=== PATIENT | female | born 1980 | race Caucasian/White ===

== ENCOUNTER 2017-03-06 12:51 | Emergency (ER) | payer OTHER ==
[2017-03-06 13:32] VITALS: BP 93/61
--- NOTE | 2017-03-06 14:07 | UC ---
FLU HPI - HPI Summary HPI Summary: PT HAS BEEN COUGHING FOR OVER A MONTH BUT THIS MORNING STARTED WITH FEVER, CONGESTION, PEREZ, CHILLS AND MYALGIAS. NO FLU SHOT THIS SEASON. LAST DOSE ADVIL 1.5 HRS AGO AND TEMP STILL 101.8. - History of Current Complaint Chief Complaint: UCGeneralIllness Stated Complaint: CONGESTION Time Seen by Provider: 03/06/17 13:53 Hx Obtained From: Patient Hx Last Menstrual Period: 02/15/17 Onset/Duration: Gradual Onset, Lasting Hours, Still Present Severity Currently: Moderate Severity Initially: Moderate Pain Intensity: 7 Pain Scale Used: 0-10 Numeric Associated Signs & Symptoms: Positive: Fever, Myalgia, Cough, Sore Throat, Nasal Congestion, Headache - Allergy/Home Medications Allergies/Adverse Reactions: Allergies Allergy/AdvReac Type Severity Reaction Status Date / Time Gluten Meal Allergy GI Upset Verified 03/06/17 13:32 Home Medications: Home Medications Ibuprofen [Ibuprofen 200 MG] 400 mg PO Q6HR PRN 03/06/17 [History Confirmed 04/22] PMH/Surg Hx/FS Hx/Imm Hx Previously Healthy: Yes - Surgical History Surgical History: Yes Surgery Procedure, Year, and Place: D&C - Family History Known Family History: Positive: None Negative: Hypertension - Social History Alcohol Use: Weekly Substance Use Type: None Smoking Status (MU): Former Smoker Type: Cigarettes Amount Used/How Often: < PPD Length of Time of Smoking/Using Tobacco: 10 YEARS Have You Smoked in the Last Year: No When Did the Patient Quit Smoking/Using Tobacco: 2009 - Immunization History Most Recent Influenza Vaccination: NOT UTD Most Recent Tetanus Shot: 06/09/14 Most Recent Pneumonia Vaccination: none Review of Systems Constitutional: Fever, Chills, Fatigue ENT: Sore Throat, Nasal Discharge Respiratory: Cough Cardiovascular: Negative Gastrointestinal: Negative Musculoskeletal: Myalgia Neurological: Headache All Other Systems Reviewed And Are Negative: Yes Physical Exam Triage Information Reviewed: Yes Appearance: No Pain Distress, Well-Nourished, Ill-Appearing - MILD Vital Signs: Initial Vital Signs Temp 101.8 F 03/06/17 13:28 Pulse 95 03/06/17 13:28 Resp 18 03/06/17 13:28 BP 93/61 03/06/17 13:28 Pulse Ox 100 03/06/17 13:28 Vital Signs Reviewed: Yes Eyes: Positive: Conjunctiva Clear ENT: Positive: Hearing grossly normal, Pharynx normal, TMs normal Neck: Positive: Supple, Nontender, Enlarged Nodes @ - MILD SPFL CERVICAL LAD RIGHT SIDE - NON TENDER Respiratory Exam: Normal Cardiovascular Exam: Normal Abdomen Description: Positive: Soft Musculoskeletal: Positive: No Edema Neurological: Positive: Alert Psychological: Positive: Age Appropriate Behavior Skin: Negative: rashes Diagnostics - Laboratory Diagnostic Studies Completed/Ordered: SWAB POSITIVE INFLUENZA B Flu Course/Dx - Differential Dx/Diagnosis Provider Diagnoses: INFLUENZA B Discharge - Discharge Plan Condition: Stable Disposition: HOME Prescriptions: Oseltamivir CAP* [Tamiflu CAP*] 75 mg PO BID #10 cap Patient Education Materials: Influenza (ED) Referrals: No Primary Care Phys,NOPCP [Primary Care Provider] - Additional Instructions: YOU HAVE SWABBED POSITIVE FOR INFLUENZA B. TAKE THE TAMIFLU TWICE DAILY FOR 5 DAYS. REST, HYDRATE, IBUPROFEN/TYLENOL NEEDED FOR FEVER AND DISCOMFORT. CALL YOUR [facility] [employer] [facility] IF YOU ARE INTERESTED IN PROPHYLACTIC TREATMENT AND/ OR FLU VACCINE. CALL THE NUMBER BELOW FOR ASSISTANCE IN ESTABLISHING WITH A PCP An additional resource available to assist in finding the appropriate physician for your health care needs is the [facility] ([facility]). You may contact them by calling [phone].
== END 2017-03-06 14:43 | disposition home or self-care (01) ==
LOC: UCEAST 12:51
DX: J10.1 Influenza due to other identified influenza virus with other respiratory manifestations (principal); Z87.891 Personal history of nicotine dependence
CPT/HCPCS: 87502; 99212; G0463

== ENCOUNTER 2017-04-03 10:31 | Emergency (ER) | payer OTHER ==
[2017-04-03 10:41] VITALS: BP 105/71
--- NOTE | 2017-04-03 11:24 | UC ---
Ear Complaint HPI - HPI Summary HPI Summary: BILATERAL EAR FULLNESS AND CONGESTION ALONG WITH SINUS PAIN AND PRESSURE FOR 3 DAYS. NO FEVER. NO COUGH. NO N/V/D - History of Current Complaint Chief Complaint: UCGeneralIllness Stated Complaint: SINUS COMPLAINT Time Seen by Provider: 04/03/17 11:06 Hx Obtained From: Patient Hx Last Menstrual Period: 03/28/17 Onset/Duration: Gradual Onset, Lasting Days, Still Present Severity Initially: Moderate Severity Currently: Moderate Pain Intensity: 3 Pain Scale Used: 0-10 Numeric Aggravating Factors: Nothing Alleviating Factors: Nothing - Allergies/Home Medications Allergies/Adverse Reactions: Allergies Allergy/AdvReac Type Severity Reaction Status Date / Time MS Gluten Meal [Gluten Meal] Allergy GI Upset Verified 04/03/17 10:42 Home Medications: Home Medications NK [No Home Medications Reported] 04/03/17 [History Confirmed 04/03/17] PMH/Surg Hx/FS Hx/Imm Hx Previously Healthy: Yes - Surgical History Surgical History: Yes Surgery Procedure, Year, and Place: D&C - Family History Known Family History: Positive: None Negative: Hypertension - Social History Alcohol Use: Weekly Substance Use Type: None Smoking Status (MU): Former Smoker Type: Cigarettes Amount Used/How Often: < PPD Length of Time of Smoking/Using Tobacco: 10 YEARS Have You Smoked in the Last Year: No When Did the Patient Quit Smoking/Using Tobacco: 2009 - Immunization History Most Recent Influenza Vaccination: NOT UTD Most Recent Tetanus Shot: 06/09/14 Most Recent Pneumonia Vaccination: none Review of Systems Constitutional: Negative ENT: Sinus Congestion Respiratory: Negative Cardiovascular: Negative Gastrointestinal: Negative Neurological: Headache All Other Systems Reviewed And Are Negative: Yes Physical Exam Triage Information Reviewed: Yes Appearance: Well-Appearing, No Pain Distress, Well-Nourished Vital Signs: Initial Vital Signs Temp 98.6 F 04/03/17 10:37 Pulse 78 04/03/17 10:37 Resp 18 04/03/17 10:37 BP 105/71 04/03/17 10:37 Pulse Ox 100 04/03/17 10:37 Vital Signs Reviewed: Yes Eyes: Positive: Conjunctiva Clear ENT: Positive: Hearing grossly normal, Pharynx normal, TMs normal Neck: Positive: Supple, Nontender, No Lymphadenopathy Respiratory Exam: Normal Cardiovascular Exam: Normal Abdomen Description: Positive: Soft Musculoskeletal: Positive: No Edema Neurological: Positive: Alert Psychological: Positive: Age Appropriate Behavior Skin: Negative: rashes Ear Complaint Course/Dx - Differential Dx/Diagnosis Provider Diagnoses: ACUTE SINUSITIS Discharge - Discharge Plan Condition: Stable Disposition: HOME Patient Education Materials: Sinusitis (ED) Referrals: No Primary Care Phys,NOPCP [Primary Care Provider] - Additional Instructions: YOUR SYMPTOMS ARE LIKELY VIRALLY MEDIATED AND SHOULD RESOLVE ON THEIR OWN WITH TIME. REST, HYDRATE, OTC MEDS NEEDED. SEEK FOLLOW-UP IF YOU ARE NOT IMPROVING OVER THE NEXT 1-2 WEEKS. TRY OTC AFRIN FOR NASAL CONGESTION. OKAY TO USE 2-3 SPRAYS IN EACH NOSTRIL UP TO 2 TIMES DAILY. DO NOT USE FOR MORE THAN 3-4 CONSECUTIVE DAYS TO PREVENT DEVELOPING REBOUND CONGESTION. CALL THE NUMBER BELOW FOR ASSISTANCE IN ESTABLISHING WITH A PCP An additional resource available to assist in finding the appropriate physician for your health care needs is the [facility] ([facility]). You may contact them by calling [phone].
== END 2017-04-03 11:21 | disposition home or self-care (01) ==
LOC: UCEAST 10:31
DX: J01.90 Acute sinusitis, unspecified (principal); Z87.891 Personal history of nicotine dependence
CPT/HCPCS: 99211; G0463

== ENCOUNTER 2018-06-19 09:25 | Emergency (ER) | payer BC, OTHER ==
[2018-06-19 09:35] VITALS: BP 98/66
--- NOTE | 2018-06-19 09:49 | UC ---
UC General HPI - HPI Summary HPI Summary: States two days ago during the night she got up to help her son and kicked her boyfriends weight bench and injured her fourth toe on the right. Still painful and more bruising. 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 Pain with ambulation. - History of Current Complaint Chief Complaint: UCLowerExtremity Stated Complaint: RT FOOT INJURY Time Seen by Provider: 06/19/18 09:41 Hx Last Menstrual Period: 06/05/18 Pain Intensity: 6 - Allergy/Home Medications Allergies/Adverse Reactions: Allergies Allergy/AdvReac Type Severity Reaction Status Date / Time gluten meal Allergy GI Upset Uncoded 06/19/18 09:29 PMH/Surg Hx/FS Hx/Imm Hx Previously Healthy: Yes - Surgical History Surgical History: Yes Surgery Procedure, Year, and Place: D&C,tubal - Family History Known Family History: Positive: None Negative: Hypertension - Social History Alcohol Use: Weekly Substance Use Type: None Smoking Status (MU): Former Smoker Type: Cigarettes Amount Used/How Often: < PPD Length of Time of Smoking/Using Tobacco: 10 YEARS Have You Smoked in the Last Year: No When Did the Patient Quit Smoking/Using Tobacco: 2009 - Immunization History Most Recent Influenza Vaccination: NOT UTD Most Recent Tetanus Shot: 06/09/14 Most Recent Pneumonia Vaccination: none Review of Systems All Other Systems Reviewed And Are Negative: Yes Musculoskeletal: Positive: Other: - toe pain Physical Exam Triage Information Reviewed: Yes Appearance: Well-Appearing Vital Signs: Initial Vital Signs Temp 98.6 F 06/19/18 09:32 Pulse 69 06/19/18 09:32 Resp 16 06/19/18 09:32 BP 98/66 06/19/18 09:32 Pulse Ox 100 06/19/18 09:32 Vital Signs Reviewed: Yes Musculoskeletal: Positive: Other: - ecchymosis and pain over fourth right toe, ecchymosis extending into forefoot but less painful Skin: Positive: Other Diagnostics - Radiology Foot/Toe xray Radiology Interpretation Completed By: Radiologist Summary of Radiographic Findings: Right foot - Nondisplaced fracture of proximal phalanyx Course/Dx - Course Course Of Treatment: 38 yr old with 4th toe injury Proximal phalanx fracture Plan Continue to jonn tape toe Rest, elevate and ice Can use ibuprofen as needed for pain Recommend good support shoes If symptoms persist, or worsen, recommend follow up with PCP or return to urgent care - Diagnoses Provider Diagnosis: Fracture of phalanx of toe Discharge - Sign-Out/Discharge Documenting (check all that apply): Patient Departure All imaging exams completed and their final reports reviewed: Yes - Discharge Plan Condition: Good Disposition: HOME Patient Education Materials: Toe Fracture (ED) Referrals: No Primary Care Phys,NOPCP [Primary Care Provider] - Additional Instructions: Continue to jonn tape toe Rest, elevate and ice Can use ibuprofen as needed for pain Recommend good support shoes If symptoms persist, or worsen, recommend follow up with PCP or return to urgent care - Billing Disposition and Condition Condition: GOOD Disposition: Home
== END 2018-06-19 10:30 | disposition home or self-care (01) ==
LOC: UCEAST 09:25
DX: S92.514A Nondisplaced fracture of proximal phalanx of right lesser toe(s), initial encounter for closed fracture (principal); W22.8XXA Striking against or struck by other objects, initial encounter; Y92.009 Unspecified place in unspecified non-institutional (private) residence as the place of occurrence of the external cause; Z87.891 Personal history of nicotine dependence
CPT/HCPCS: 99211; G0463